=== PATIENT | female | born 1935 | race Caucasian/White ===

== ENCOUNTER 2022-02-01 23:29 | Emergency (ER) | payer MEDICARE, SELFPAY ==
--- NOTE | ~2022-02-01 | CT_ITS ---
EXAMINATION: NONCONTRAST HEAD CT NONCONTRAST CERVICAL SPINE CT INDICATION INFORMATION: Fall with head strike. Pain. COMPARISON: None TECHNIQUE: Separate noncontrast CT examinations of the head and cervical spine were performed. Coronal and sagittal images were created for each examination at the technologist workstation. This CT examination was performed using dose optimization techniques as appropriate, variously including the following: *Automated exposure control *Adjustment of mA and/or kV according to patient size (this includes techniques or standardized protocols for targeted exams where dose is matched to indication/reason for exam; i.e. extremities or head) *Use of iterative reconstruction technique DLP: 904 mGy-cm FINDINGS: Head: There is no evidence of acute intracranial hemorrhage or territorial infarction. No abnormal mass effect or midline shift is seen. Moffett to white matter differentiation is well preserved. No extra-axial fluid collections are identified. No hydrocephalus. Proportional prominence of the ventricles and sulcal spaces is consistent with mild volume loss. Patchy periventricular and deep white matter hypoattenuation is consistent with mild small vessel ischemic changes. Central frontal soft tissue swelling/subgaleal hematoma. No underlying calvarial fracture. The mastoid air cells and visualized portions of the paranasal sinuses are well aerated. Cervical spine: There is anatomic alignment of the vertebral bodies and posterior elements. There is accentuation of the cervical lordosis. The atlantoaxial and atlantooccipital articulations are intact. Vertebral body heights are maintained. There is multilevel intervertebral disc space narrowing with endplate osteophyte formation and facet arthropathy. No evidence of acute fracture. No prevertebral soft tissue swelling. Visualized portions of the lung apices are unremarkable. The thyroid gland is unremarkable. CT/CT cervical spine wo con IMPRESSION: 1. No acute intracranial finding. 2. No fracture or malalignment of the cervical spine. Mild degenerative change.
--- NOTE | ~2022-02-01 | XR_ITS ---
EXAMINATION: XR RIBS, BILATERAL CLINICAL INFORMATION: Fall with right-sided rib pain greater than left. COMPARISON: None TECHNIQUE: 3 views of the bilateral ribs were obtained. Frontal view of the chest. FINDINGS: Lungs are clear. No consolidation, pneumothorax, or pleural effusion. The cardiomediastinal silhouette and pulmonary vasculature are normal. Aortic calcifications. The bones are osteopenic. Ribs are intact. No fractures are identified. XR/XR ribs BI min 4V w CXR1V IMPRESSION: No displaced rib fractures are seen. Clear lungs. Of note, the degree of osteopenia limits evaluation of the ribs. These will be better evaluated on the subsequent chest CT.
--- NOTE | ~2022-02-01 | CT_ITS ---
EXAMINATION: CT CHEST WITH CONTRAST CT ABDOMEN AND PELVIS WITH CONTRAST CLINICAL INFORMATION: Right and left flank pain. Fall. EtOH. COMPARISON: Radiographs from today. TECHNIQUE: Multidetector volumetric imaging was performed through the chest, abdomen and pelvis following the administration of 85 mL of Omnipaque 350 intravenous contrast. Sagittal and coronal reformatted images were obtained on the technologist's workstation. Axial MIP volume rendering provided. This CT examination was performed using dose optimization techniques as appropriate, variously including the following: *Automated exposure control *Adjustment of mA and/or kV according to patient size (this includes techniques or standardized protocols for targeted exams where dose is matched to indication/reason for exam; i.e. extremities or head) *Use of iterative reconstruction technique DLP: 989 mGy-cm. FINDINGS: CHEST: Lungs: The central airways are patent. Dependent atelectasis bilaterally. There is a mixed solid and groundglass nodule in the left lower lobe measuring 1.4 cm on series 7 image 262. There is a pleural extension. The solid component of this nodule measures 0.7 cm. Mild pleural thickening/scarring at the apices. No pneumothorax or pleural effusion. Mediastinum: The heart is prominent with coronary artery calcifications noted. There is no pericardial effusion. Central vascular structures are unremarkable. No hilar or mediastinal lymphadenopathy. Chest Wall/Axilla: No lymphadenopathy. No chest wall mass. ABDOMEN/PELVIS: Liver, Gallbladder, Biliary Tree: The liver is normal in size, shape, and attenuation. No focal hepatic lesion or biliary ductal dilatation is present. The gallbladder is unremarkable with no evidence of radiopaque gallstones, gallbladder wall thickening, or pericholecystic inflammatory changes. Pancreas: Unremarkable. Spleen: Unremarkable. Adrenal Glands: Unremarkable. Kidneys and Ureters: The kidneys are normal in size, shape, and attenuation. No hydronephrosis or hydroureter. Prominent calculus at the upper pole of the right kidney measuring 1.8 cm. This is 7.5 cm from the posterior axillary line and measures 490 Hounsfield units. Bladder: Mild wall thickening of the bladder, particularly at the right aspect. Gastrointestinal Tract: The stomach and small bowel appear unremarkable. No dilated loops of bowel or evidence of obstruction. No diverticulosis. No colonic wall thickening or adjacent inflammatory changes. No free air or free fluid. The appendix is not seen. There is no pericecal inflammation to suggest acute appendicitis. Abdominal Wall: No hernia is demonstrated. Lymphovascular Structures: Lymph nodes: Normal. Vascular: Normal caliber aorta with moderate atherosclerotic calcification. Pelvic Viscera: The uterus and adnexa are unremarkable. OSSEOUS STRUCTURES: No clavicular or scapular fracture. The sternum is intact. No rib fractures. Kyphotic thoracic spine. DISH. There is disruption of the bridging ossification at the level of T5 vertebral body. There is associated fracture at the anterior inferior endplate of T5. No extension to the posterior column or posterior elements. Mild chronic appearing height loss at the T12 vertebral body. The lumbar spine is intact. The hips are well aligned with mild degenerative change. CT/CT abdomen pelvis w con IMPRESSION: 1. Fracture at the T5 vertebral body involving the anterior osseous bridging in the anterior inferior endplate. No height loss. No posterior extension. This is a 1 column fracture. 2. 1.4 cm mixed solid and groundglass left lower lobe pulmonary nodule. According to the UPDATED 2017 Fleischner Society recommendations, the advised follow-up imaging for a single part solid nodule measuring 6 mm or greater is: CT at 3-6 months to confirm persistence. If unchanged and solid component remains <6 mm, annual CT should be performed for 5 years. 3. Prominent right upper pole renal calculus. This critical result was discussed with Dr. Gunderson by telephone at 02/02/2022 4:16 AM and it was ascertained that the content and urgency of the report was understood at the time of direct communication.
[2022-02-01 23:34] VITALS: BP 142/70; PULSE 78; RESP 18; TEMP 36.6; O2SAT 96; BMI 29.5
--- NOTE | 2022-02-01 23:56 | ECG_ITS ---
Test Reason : FALL Blood Pressure : / mmHG Vent. Rate : 077 BPM Atrial Rate : 000 BPM P-R Int : 000 ms QRS Dur : 076 ms QT Int : 384 ms P-R-T Axes : 000 012 -20 degrees QTc Int : 434 ms Atrial fibrillation Low voltage QRS Septal infarct , age undetermined Abnormal ECG No previous ECGs available Referred By: Elvira Schmid Electronically Signed By:DE MACIAS
--- NOTE | 2022-02-02 00:02 | ED.FALL ---
HPI - Fall General Chief Complaint: Fall Stated Complaint: fall, hit head Time Seen by Provider: 02/01/22 23:52 Source: patient and family Mode of arrival: ambulatory Limitations: no limitations History of Present Illness HPI Narrative: This is a 86-year-old female past medical history atrial fibrilation on Eliquis presents to the emergency department status post a witnessed trip and fall prior to her arrival. According to family members they were at a wedding, she was stumbling due to alcohol use, and she was going downhill, lost her balance, fell hitting the right side of her head onto a brick wall. Patient reports slight pain to the head, particularly where she hit her head. Denies dizziness, weakness, vision changes, chest pain, shortness of breath, nausea, vomiting. Patient is currently on blood thinners. There was no loss of consciousness. And no preceding symptoms prior to fall. MD complaint: fall Related Data Previous Rx's Medication Instructions Recorded cefuroxime axetil 250 mg tablet 250 mg PO BID 7 days #14 tabs 02/02/22 Allergies Allergy/AdvReac Type Severity Reaction Status Date / Time No Known Allergies Allergy Verified 02/01/22 23:33 Review of Systems Review of Systems: Constitutional : No Weight loss, No Fever, No Chills, No Fatigue, No Malaise ENT/Mouth : No sore throat, No Rhinorrhea Eyes: No Eye Pain, No Swelling, No Redness Cardiovascular : No Chest Pain, No SOB, No Dyspnea on Exertion, No Orthopnea, No Edema, No Palpitations Respiratory : No Cough, No Sputum, No Wheezing Gastrointestinal : No Nausea, No Vomiting, No Diarrhea, No Constipation, No abdominal Pain, No Hematochezia, No Melena Genitourinary : No Dysuria, No Urinary Frequency, No Hematuria, Musculoskeletal : No joint pain, No Myalgias, No Joint Swelling Skin : No Skin Lesions, No rash Neuro : No Weakness, No Numbness, No Dizziness, + Headache Psych : No Anxiety/Panic, No Depression All other systems reviewed and are negative Yes all other systems are reviewed and are negative FOR[facility]LY [facility] Past Medical History Attestation statement: The following information was validated with the patient. Source: old records reviewed and nursing notes reviewed Social History Social History Advance Directives: No Advance Directives Information Provided: Yes Physical Exam Vital Signs: Vital Signs: Last Vital Signs Temp 97.7 F 02/02/22 01:53 Pulse 88 02/02/22 01:53 Resp 18 02/02/22 01:53 BP 158/79 H 02/02/22 01:53 Pulse Ox 95 02/02/22 01:53 O2 Del Method 02/02/22 01:53 BMI result Body Mass Index 29.5 vss Appearance: Alert.? Oriented X3.? No acute distress.? Patient speaking with normal speech, no slurred speech. Head: Normocephalic, atraumatic, no step-offs or deformities . Smile symmetric. Eyes: Pupils equal, round and reactive to light.? ENT: Pharynx normal.? Neck: Normal inspection.? Neck supple.? CVS: Normal heart rate and rhythm.? Pulses normal.? Respiratory: No respiratory distress.? Breath sounds normal.? Abdomen: Soft and nontender.? Skin: Skin warm and dry.? Normal skin color.? Normal skin turgor.? + abrasion to left elbow. Extremities: No lower extremity edema.? No calf ttp. 5/5 strength to bilateral upper and lower extremities . Normal hand corsage maker bilaterally. Back: No midline tenderness, no C-spine tenderness, full range of motion, no CVA tenderness bilaterally Neuro: Oriented X 3.? No motor deficit.? No sensory deficit. CN 2-12 intact . Normal [id number]-qu-ljom, jqiz-ut-[id number], steady tandem gait with normal coordination. Course Reevaluation(s) Reevaluation #1: patient is now starting to have some bruising to the middle aspect of the forehead. CBC within normal limits. Chemistry with no acute electrolyte abnormalities requiring intervention. Total creatinine kinase slightly elevated likely secondary to fall, patient tolerating p.o. fluids. Troponin negative, EKG nonischemic however showing atrial fibrillation which is normal for this patient. Patient with significant urinary tract infection will be started on Ceftin 250 mg p.o. b.i.d. x7 days. Ethanol level 123. Covid negative. Patient was given morphine for headache, still no vision changes or dizziness. Time: 01:17 Reevaluation #2: CT of the head and cervical spine with no acute intracranial findings, no fractures or malalignment of the cervical spine. There is some soft tissue swelling noted in the central front. Consistent with patient's physical examination. At time of discharge patient ambulating with steady gait, will be discharged home with medications for UTI, patient is not weak, no febrile and no changes on laboratory studies, no need for patient to be admitted to the hospital for UTI. Patient will be discharged home with family. At this time I feel comfortable with prompt PCP follow-up. Time: 02:16 MDM - Fall MDM Narrative Medical decision making narrative: 0000 86-year-old female presents status post trip and fall hitting her head onto a brick wall, anticoagulated, currently intoxicated from alcohol. Physical examination with small abrasion to the left elbow. Regular rate and rhythm. Lungs clear. Abdomen soft nontender nondistended. Bilateral pupils equal round and reactive to light, no nystagmus. Head normocephalic, atraumatic, no step-offs or deformities. Neuro exam is nonfocal. Normal cerebellar function. Patient has a small abrasion to left elbow. NIH stroke scale is 0. Plan at this time is basic labs, CPK, COVID, ethanol, troponin, UA, EKG. Will obtain a CT of the head and cervical spine. Medical Records Attestation: I reviewed the patient's medical records. Lab Data Attestation: I reviewed the patient's lab results. Result diagrams: 02/02/22 00:05 02/02/22 00:05 Labs: Lab Results 02/02/22 02/02/22 02/02/22 Range/Units 00:05 00:05 00:05 WBC 9.3 (4.8-10.8) X10*3/uL RBC 4.24 (4.20-5.50) X10*6/uL Hgb 13.8 (12.0-16.0) g/dl Hct 40.9 (37.0-47.0) % MCV 96.5 (80.0-98.0) fL MCH 32.5 (27.0-33.0) pg MCHC 33.7 (31.0-35.0) g/dl RDW 12.8 (11.0-16.0) % Plt Count 197 (160-400) X10*3/uL MPV 10.5 (9.4-12.3) fL Immature Gran % (Auto) 1.6 H (0.0-0.4) % Neut % (Auto) 73.5 H (45-73) % Lymph % (Auto) 14.2 L (20-40) % [place] % (Auto) 8.4 (2-11) % Eos % (Auto) 1.7 (0-4) % Baso % (Auto) 0.6 (0-2) % Lymph # (Auto) 1.3 (1.2-4.9) X10*3/uL [place] # (Auto) 0.8 (0.1-1.2) X10*3/uL Eos # (Auto) 0.2 (0.0-0.4) X10*3/uL Baso # (Auto) 0.1 (0.0-0.2) X10*3/uL Abs Immat Gran (auto) 0.15 H (0.00-0.03) X10*3/uL Absolute Neuts (auto) 6.8 (2.0-8.3) x10*3/uL Absolute Nucleated RBC 0.000 (0.0-0.012) X10*3/uL Nucleated RBC % (auto) 0.0 (0.0-0.2) /100WBC Sodium 141 (135-145) mmol/L Potassium 4.0 (3.3-5.1) mmol/L Chloride 104 (96-108) mmol/L Carbon Dioxide 26 (22-29) mmol/L Anion Gap 15 (12-20) BUN 19 H (9-16) mg/dL Creatinine 1.03 (0.5-1.4) mg/dL Estim Creat Clear Calc 35.1 Estimated GFR 51 Random Glucose 108 (60-115) mg/dL Calcium 9.0 (8.4-10.2) mg/dL Magnesium 2.1 (1.6-2.6) mg/dL Total Bilirubin 0.5 (0.0-1.0) mg/dL AST 29 (5-31) U/L ALT 22 (0-31) U/L Alkaline Phosphatase 81 (39-117) U/L Total Creatine Kinase (26-140) U/L Troponin I High Sens (<3.5-17.0) ng/L Total Protein 6.5 (6.5-8.0) g/dL Albumin 4.3 (3.5-5.0) g/dL Urine Color Urine Appearance Urine pH (5.0-8.0) Ur Specific Dietrich (1.005-1.025) Urine Protein (Neg-Trace) mg/dL Urine Glucose (UA) (Negative) mg/dL Urine Ketones (Negative) mg/dL Urine Blood (Negative) Urine Nitrite (Negative) Ur Leukocyte Esterase (Negative) Urine RBC (0-2) /HPF Urine WBC (0-5) /HPF Urine WBC Clumps Ur Squamous Epith Cells (0-2) /HPF Urine Bacteria (None Seen) Hyaline Casts (0-2) /LPF Ethyl Alcohol mg/dL COVID-19 (DELIA) Negative (Negative) COVID-19 Clin Com See Note 02/02/22 02/02/22 02/02/22 Range/Units 00:05 00:05 00:50 WBC (4.8-10.8) X10*3/uL RBC (4.20-5.50) X10*6/uL Hgb (12.0-16.0) g/dl Hct (37.0-47.0) % MCV (80.0-98.0) fL MCH (27.0-33.0) pg MCHC (31.0-35.0) g/dl RDW (11.0-16.0) % Plt Count (160-400) X10*3/uL MPV (9.4-12.3) fL Immature Gran % (Auto) (0.0-0.4) % Neut % (Auto) (45-73) % Lymph % (Auto) (20-40) % [place] % (Auto) (2-11) % Eos % (Auto) (0-4) % Baso % (Auto) (0-2) % Lymph # (Auto) (1.2-4.9) X10*3/uL [place] # (Auto) (0.1-1.2) X10*3/uL Eos # (Auto) (0.0-0.4) X10*3/uL Baso # (Auto) (0.0-0.2) X10*3/uL Abs Immat Gran (auto) (0.00-0.03) X10*3/uL Absolute Neuts (auto) (2.0-8.3) x10*3/uL Absolute Nucleated RBC (0.0-0.012) X10*3/uL Nucleated RBC % (auto) (0.0-0.2) /100WBC Sodium (135-145) mmol/L Potassium (3.3-5.1) mmol/L Chloride (96-108) mmol/L Carbon Dioxide (22-29) mmol/L Anion Gap (12-20) BUN (9-16) mg/dL Creatinine (0.5-1.4) mg/dL Estim Creat Clear Calc Estimated GFR Random Glucose (60-115) mg/dL Calcium (8.4-10.2) mg/dL Magnesium (1.6-2.6) mg/dL Total Bilirubin (0.0-1.0) mg/dL AST (5-31) U/L ALT (0-31) U/L Alkaline Phosphatase (39-117) U/L Total Creatine Kinase 380 H (26-140) U/L Troponin I High Sens 5.4 (<3.5-17.0) ng/L Total Protein (6.5-8.0) g/dL Albumin (3.5-5.0) g/dL Urine Color Yellow Urine Appearance Cloudy Urine pH 5.5 (5.0-8.0) Ur Specific Dietrich 1.010 (1.005-1.025) Urine Protein Trace (Neg-Trace) mg/dL Urine Glucose (UA) Negative (Negative) mg/dL Urine Ketones Negative (Negative) mg/dL Urine Blood Large (3+) H (Negative) Urine Nitrite Positive H (Negative) Ur Leukocyte Esterase Large (3+) H (Negative) Urine RBC 6-10 H (0-2) /HPF Urine WBC >50 H (0-5) /HPF Urine WBC Clumps Present Ur Squamous Epith Cells 0-2 (0-2) /HPF Urine Bacteria 1+ (None Seen) Hyaline Casts 0-2 (0-2) /LPF Ethyl Alcohol 123 mg/dL COVID-19 (DELIA) (Negative) COVID-19 Clin Com ECG Data Attestation: I personally reviewed and interpreted this ECG as follows: ECG interpretation date: 02/02/22 ECG interpretation time: 01:18 Prior ECG tracings: available for review Interpretation: Ventricular rate of 77, NV normal, QRS normal, QT / QTC normal ekg w/ atrial fibrillation, no st elevations or inversions concerning for ischemia. Critical Care Time Critical Care Time Critical Care Time: No Discharge Plan Discharge Clinical Impression: Alcohol intoxication, Fall, Urinary tract infection, Hematoma, Concussion without loss of consciousness Patient Disposition: Home, Self-Care Instructions: Fall Prevention for Older Adults (ED), Alcohol Intoxication (ED), Fall Prevention (ED) Additional Instructions: Take your medications as prescribed. If you were prescribed antibiotics today, it is important that you take your medication to their entirety, do not skip any doses, do not finish them early. Follow-up with your primary care provider this week. Return to the emergency department with new or worsening symptoms. Such as fevers, chills, chest pain, shortness of breath, nausea, vomiting, dizziness, headache, vision changes, lethargy In case of emergency call 911 FINDINGS: Head: There is no evidence of acute intracranial hemorrhage or territorial infarction. No abnormal mass effect or midline shift is seen. Moffett to white matter differentiation is well preserved. No extra-axial fluid collections are identified. No hydrocephalus. Proportional prominence of the ventricles and sulcal spaces is consistent with mild volume loss. Patchy periventricular and deep white matter hypoattenuation is consistent with mild small vessel ischemic changes. Central frontal soft tissue swelling/subgaleal hematoma. No underlying calvarial fracture. The mastoid air cells and visualized portions of the paranasal sinuses are well aerated. Cervical spine: There is anatomic alignment of the vertebral bodies and posterior elements. There is accentuation of the cervical lordosis. The atlantoaxial and atlantooccipital articulations are intact. Vertebral body heights are maintained. There is multilevel intervertebral disc space narrowing with endplate osteophyte formation and facet arthropathy. No evidence of acute fracture. No prevertebral soft tissue swelling. Visualized portions of the lung apices are unremarkable. The thyroid gland is unremarkable. CT/CT head/brain wo con IMPRESSION: ? 1. No acute intracranial finding. 2. No fracture or malalignment of the cervical spine. Mild degenerative change. Prescriptions: New cefuroxime axetil 250 mg tablet 250 mg PO BID 7 Days Qty: 14 0RF Referrals: Physician,Unknown J [Primary Care Provider] - 2 days
[2022-02-02 00:10] LABS: MANUAL DIFF FLAG NO
[2022-02-02 00:11] LABS: Basophils Absolute Auto 0.1 X10*3/uL (0.0-0.2); Basophils Percent Auto 0.6 % (0-2); Eosinophils Absolute Auto 0.2 X10*3/uL (0.0-0.4); Eosinophils Percent Auto 1.7 % (0-4); Hematocrit 40.9 % (37.0-47.0); Hemoglobin 13.8 g/dl (12.0-16.0); Imm Gran Abs Auto 0.15 X10*3/uL (0.00-0.03); Imm Gran Pct Auto 1.6 % (0.0-0.4); Lymphocytes Absolute Auto 1.3 X10*3/uL (1.2-4.9); Lymphocytes Percent Auto 14.2 % (20-40); Mean Corpuscular HGB Conc 33.7 g/dl (31.0-35.0); Mean Corpuscular Hemoglobin 32.5 pg (27.0-33.0); Mean Corpuscular Volume 96.5 fL (80.0-98.0); Mean Platelet Volume 10.5 fL (9.4-12.3); Monocytes Absolute Auto 0.8 X10*3/uL (0.1-1.2); Monocytes Percent Auto 8.4 % (2-11); Neutrophils Absolute Auto 6.8 x10*3/uL (2.0-8.3); Neutrophils Percent Auto 73.5 % (45-73); Platelet Count 197 X10*3/uL (160-400); Red Blood Count 4.24 X10*6/uL (4.20-5.50); Red Cell Distribution Width 12.8 % (11.0-16.0); White Blood Count 9.3 X10*3/uL (4.8-10.8)
[2022-02-02 00:28] LABS: COVID-19 Test Negative (Negative)
[2022-02-02 00:32] LABS: Troponin-I High Sensitivity 5.4 ng/L (<3.5-17.0)
[2022-02-02 00:33] LABS: Ethanol 123 mg/dL
[2022-02-02 00:34] LABS: Alanine Aminotransferase 22 U/L (0-31); Albumin Level 4.3 g/dL (3.5-5.0); Alkaline Phosphatase 81 U/L (39-117); Anion Gap 15 (12-20); Aspartate Amino Transferase 29 U/L (5-31); Bilirubin Total 0.5 mg/dL (0.0-1.0); Blood Urea Nitrogen 19 mg/dL (9-16); Carbon Dioxide 26 mmol/L (22-29); Chloride 104 mmol/L (96-108); Creatinine Clr Calc Pharmacy 35.1; Estimated Glomerular Filt Rate 51; Glucose Random 108 mg/dL (60-115); Magnesium 2.1 mg/dL (1.6-2.6); Sodium 141 mmol/L (135-145); Total Protein 6.5 g/dL (6.5-8.0)
[2022-02-02 00:56] LABS: Appearance Urine Cloudy; Color Urine Yellow; Glucose Urine UA Negative (Negative); Leukocyte Esterase Urine Large (3+) (Negative); Nitrite Urine Positive (Negative); PH 5.5 (5.0-8.0); Urine Blood Large (3+) (Negative); Urine Ketones Negative (Negative); Urine Protein Trace mg/dL (Neg-Trace)
[2022-02-02 01:01] LABS: Bacteria Urine 1+ (None Seen); Hyaline Casts Urine 0-2 /LPF (0-2); Squamous Epithelial Cell Urine 0-2 /HPF (0-2); UACC Culture Trigger YES; WBC Urine >50 /HPF (0-5)
[2022-02-02 01:12] LABS: WBC Clumps Urine Present
[2022-02-02 01:45] VITALS: RESP 16
[2022-02-02] MEDS: Morphine Sulfate 2 MG/ML CARTRIDGE IVPUSH (01:45)
[2022-02-02 01:53] VITALS: BP 158/79; PULSE 88; RESP 18; TEMP 36.5; O2SAT 95
[2022-02-02] MEDS: iohexoL 350 MG/ML 100 ML INFUS..BTL 85 ML IV (03:54)
[2022-02-02 04:22] VITALS: BP 146/75; PULSE 89; RESP 18; O2SAT 94
--- NOTE | 2022-02-02 05:40 | PC.NURSE ---
Called pt.'s son, Brandon, to coordinate a ride home for pt[facility]
[2022-02-02] MEDS: traMADoL HCL 50 MG TABLET PO (06:47)
[2022-02-02] MEDS: cefTRIAXone sodium 1 GM in 0.9 % Sodium Chloride 50 ML IV (06:47)
== END 2022-02-02 09:19 | disposition home or self-care (01) ==
PROVIDERS: Physician Assistant; Emergency Provider Internal Medicine
DX: S22.059A Unspecified fracture of T5-T6 vertebra, initial encounter for closed fracture (principal); S06.0X0A Concussion without loss of consciousness, initial encounter; S00.93XA Contusion of unspecified part of head, initial encounter; R51.9 Headache, unspecified; F10.129 Alcohol abuse with intoxication, unspecified; N39.0 Urinary tract infection, site not specified; R10.9 Unspecified abdominal pain; R07.89 Other chest pain; W01.10XA Fall on same level from slipping, tripping and stumbling with subsequent striking against unspecified object, initial encounter; Y93.9 Activity, unspecified; Y92.9 Unspecified place or not applicable; Y99.9 Unspecified external cause status; Y90.6 Blood alcohol level of 120-199 mg/100 ml; Z20.822 Contact with and (suspected) exposure to COVID-19; Z79.899 Other long term (current) drug therapy
CPT/HCPCS: 36415; 70450; 71111; 71260; 72125; 74177; 80053; 81001; 82077; 82550; 83735; 84484; 85025; 87086; 87635; 93005; 96365; 96375; 99285; J0696; J2270; Q9967